=== PATIENT | male | born 1975 | race Caucasian/White ===

== ENCOUNTER → 2017-11-29 | Outpatient (CLI) | payer BC ==
[~2017-11-29] MED LIST: NO HOME MEDICATIONS
== END ==
LOC: COL.RAD 11-25 09:45
DX: R59.0 Localized enlarged lymph nodes (principal)

== ENCOUNTER → 2017-12-28 | Outpatient (CLI) | payer BC ==
[~2017-12-28] VITALS: Ht 180.3 cm; Wt 91.3 kg
[2017-12-28 13:22] VITALS: BP 118/84; PULSE 67
== END ==
LOC: COL.RAD 11:55
DX: R59.0 Localized enlarged lymph nodes (principal)